=== PATIENT | female | born 1975 | race Caucasian/White ===

== ENCOUNTER 2021-08-02 15:49 | Emergency (ER) | payer MEDICAID ==
[~2021-08-02] VITALS: Ht 152.4 cm; Wt 73.5 kg
[~2021-08-02 15:49] MED LIST: ACET-8386 PO; ASPI81EC PO; CORTISONE; FOLI5CAP PO; IBUP-2213 PO; TOPI50TA20 PO; depakote; naproxen
[2021-08-02 15:54] VITALS: BP 132/73
[2021-08-02] MEDS ORDERED: KETOROLAC 30 MG/ML VIAL IM ONE (16:05)
--- NOTE | 2021-08-02 16:23 | NUR ---
PT RETURNED TO CHAIR B FROM XRAY VIA W/C
--- NOTE | 2021-08-02 16:30 | NUR ---
46yo f c/o right wrist pain upon waking up x 1 day. pain 8/10 upon movement of wrist. denies numbness/tingling. denies trauma or injury. took ibuprofen 3 hours ago. pmh: lupus, seizure, heart disease, stroke (7 years ago) meds: aspirin allergy: rocephin
[2021-08-02] MEDS ORDERED: NAPR-54 PO (16:45)
--- NOTE | 2021-08-02 16:58 | NUR ---
Patient discharged with v/s stable. Written and verbal after care instructions given and explained. Patient verbalized understanding. Ambulatory with steady gait. All questions addressed prior to discharge. Advised to follow up with PMD.
--- NOTE | 2021-08-02 17:03 | NUR ---
Splint applied to R wrist. +PMSC before/after application.
== END 2021-08-02 16:58 | disposition home or self-care (01) ==
LOC: MED 15:49
DX: M25.531 Pain in right wrist (principal); Z79.899 Other long term (current) drug therapy; Z88.1 Allergy status to other antibiotic agents; Z90.710 Acquired absence of both cervix and uterus; Z79.82 Long term (current) use of aspirin
CPT/HCPCS: 29125; 73110; 96372; 99283; J1885

== ENCOUNTER 2022-02-11 10:42 | Emergency (ER) | payer MEDICAID ==
[~2022-02-11] VITALS: Ht 167.6 cm; Wt 72.1 kg
[~2022-02-11 10:42] MED LIST changes: +NAPR-54 PO
[2022-02-11 10:52] VITALS: BP 122/78
--- NOTE | 2022-02-11 11:10 | NUR ---
PT RETURN FROM XRAY
[2022-02-11] MEDS ORDERED: KETOROLAC 30 MG/ML VIAL IM ONE (11:35)
[2022-02-11] MEDS ORDERED: BACITRACIN OINT 500 UNITS/GM PKT TP ONE (12:10)
--- NOTE | 2022-02-11 12:10 | NUR ---
EVE DUFFY AT PT SIDE
[2022-02-11] MEDS ORDERED: IBUP-2213 PO (12:19)
[2022-02-11] MEDS ORDERED: BACI1PAC6 TP (12:19)
--- NOTE | 2022-02-11 12:32 | NUR ---
PT LEFT W/O DC PAPERS
--- NOTE | 2022-02-11 12:32 | NUR ---
Note undone in EDM - 02/11/22 at 1309 by SUSANA Patient discharged with v/s stable. Written and verbal after care instructions given and explained. Patient alert, oriented and verbalized understanding of instructions. Ambulatory with steady gait. All questions addressed prior to discharge. ID band removed. Patient advised to follow up with PMD. Rx of MOTRIN AND BACITRACIN given. Patient educated on indication of medication including possible reaction and side effects. Opportunity to ask questions provided and answered. LEFT W/O PAPERS
== END 2022-02-11 12:32 | disposition home or self-care (01) ==
LOC: MED 10:42
DX: S80.02XA Contusion of left knee, initial encounter (principal); I25.10 Atherosclerotic heart disease of native coronary artery without angina pectoris; Z86.73 Personal history of transient ischemic attack (TIA), and cerebral infarction without residual deficits; Z88.1 Allergy status to other antibiotic agents; W18.30XA Fall on same level, unspecified, initial encounter; Y93.89 Activity, other specified; Y92.89 Other specified places as the place of occurrence of the external cause; Y99.8 Other external cause status
CPT/HCPCS: 73562; 96372; 99283; J1885

== ENCOUNTER 2022-05-08 16:56 | Emergency (ER) | payer MEDICAID ==
[~2022-05-08] VITALS: Ht 152.4 cm; Wt 59.0 kg
[~2022-05-08 16:56] MED LIST changes: -ACET-8386 PO; +ACET-8905 PO; +BACI-416 TP
[2022-05-08 17:14] VITALS: BP 97/79
--- NOTE | 2022-05-08 17:23 | NUR ---
PT W/C ASSISTED TO BED 8.
[2022-05-08 18:00] LABS: BASOPHILS # (AUTO) 0.1 K/uL (0.00-0.22); BASOPHILS % (AUTO) 0.9 % (0.0-2.0); EOSINOPHILS # (AUTO) 0.2 K/uL (0-0.4); EOSINOPHILS % (AUTO) 1.2 % (0.0-4.0); HEMATOCRIT 40.5 % (36-48); HEMOGLOBIN 13.5 g/dL (12.0-16.0); LYMPHOCYTES # (AUTO) 2.6 K/uL (2.5-16.5); LYMPHOCYTES % (AUTO) 19.8 % (20.5-51.1); MEAN CORPUSCULAR HEMOGLOBIN 30 pg (27-31); MEAN CORPUSCULAR HGB CONC 33 g/dL (33-37); MEAN CORPUSCULAR VOLUME 90.5 fL (80-94); MONOCYTES # (AUTO) 0.9 K/uL (0.8-1.0); NEUTROPHILS # (AUTO) 9.2 K/uL (1.8-7.7); NEUTROPHILS % (AUTO) 71.1 % (42.2-75.2); PLATELET COUNT (AUTO) 374 K/uL (140-450); RED BLOOD CELL COUNT(AUTO) 4.48 MIL/uL (4.20-5.40); RED CELL DISTRIBUTION WIDTH 13.4 % (11.6-13.7); WHITE BLOOD COUNT (AUTO) 12.9 K/uL (4.8-10.8)
[2022-05-08] MEDS ORDERED: MORPHINE SULFATE 2 MG/ML SYR IM STA (18:23)
[2022-05-08] MEDS ORDERED: KETOROLAC 30 MG/ML VIAL IM ONE (18:25)
[2022-05-08 18:36] LABS: PROTHROMBIN TIME 9.4 secs (10.8-13.4)
[2022-05-08 18:37] LABS: ALBUMIN 3.3 g/dL (3.4-5.0); CARBON DIOXIDE 28.6 mmol/L (21-32); CREATININE 0.8 mg/dL (0.6-1.3); POTASSIUM 3.6 mmol/L (3.5-5.1); TOTAL BILIRUBIN 0.2 mg/dL (0.0-1.0)
--- NOTE | 2022-05-08 19:22 | NUR ---
pt walked in c/o right upper leg pain since this morning. Pt denies trauma/ injury. Denies wounds. Pt reports mild swelling.
[2022-05-08] MEDS ORDERED: CYCL-711 PO (19:43)
[2022-05-08] MEDS ORDERED: DICL100G5 TP (19:43)
[2022-05-08] MEDS ORDERED: PRED20TA5 PO (19:43)
--- NOTE | 2022-05-08 19:52 | NUR ---
MD at bedside updating patient
--- NOTE | 2022-05-08 19:58 | NUR ---
Patient discharged with v/s stable. Written and verbal after care instructions given and explained. Patient alert, oriented and verbalized understanding of instructions. Ambulatory with steady gait. All questions addressed prior to discharge. ID band removed. Patient advised to follow up with PMD. Rx of FLEXERIL, PREDNISONE, DICLOFENAC given. Patient educated on indication of medication including possible reaction and side effects. Opportunity to ask questions provided and answered.
[2022-05-08 19:59] VITALS: BP 125/84
== END 2022-05-08 19:58 | disposition home or self-care (01) ==
LOC: MED 16:56
DX: R25.2 Cramp and spasm (principal); I25.2 Old myocardial infarction; Z86.73 Personal history of transient ischemic attack (TIA), and cerebral infarction without residual deficits; Z79.899 Other long term (current) drug therapy; Z88.1 Allergy status to other antibiotic agents
CPT/HCPCS: 36415; 80053; 82550; 85025; 85610; 85730; 86886; 86900; 86901; 93971; 96372; 99284; J1885; J2270; Q0092